=== PATIENT | male | born 1960 | race Caucasian/White ===

== ENCOUNTER 2016-09-29 10:18 | Emergency (ER) | payer OTHER ==
[2016-09-29 10:48] VITALS: BP 139/96
--- NOTE | 2016-09-29 11:33 | RAD ---
INDICATION: Right wrist injury. TECHNIQUE: 3 views of the right wrist were obtained. FINDINGS: The bones are normal alignment. There are small calcific densities which project adjacent to the distal scaphoid bone and radius likely representing old fracture fragments. No other focal bony abnormalities are seen. Joint spaces appear maintained. IMPRESSION: THERE ARE SMALL CALCIFIC DENSITIES ADJACENT TO THE DISTAL SCAPHOID BONE AND RADIUS LIKELY REPRESENTING OLD FRACTURE FRAGMENTS.
--- NOTE | 2016-09-29 11:35 | RAD ---
Indication: The RIGHT thumb metacarpal phalangeal joint region pain post fall on outstretched hand 3 days ago. Comparison: September 29, 2016 RIGHT wrist exam. Technique: AP, lateral, and oblique views RIGHT thumb. Report: Normal articular alignment. No cortical disruption or suspicious trabecular irregularity to suggest fracture. Mild basal joint osteophytosis and minimal first metacarpal phalangeal joint osteophytosis without significant joint space narrowing. Mild nonfocal soft tissue swelling about the thumb. IMPRESSION: Mild soft tissue swelling. Negative for fracture or malalignment.
--- NOTE | 2016-09-29 11:44 | UC ---
Hand/Wrist HPI - HPI Summary HPI Summary: complaint of right wrist and thumb pain fell off a stool and caught himself with his arm the next day started to have pain in wrist and thumb which has increased tired using ice packs and ibuprofen and aleve without relief constant aching pain in base of thumb and medial side of wrist moving his thumb and turning his wrist increases pain - History Of Current Complaint Chief Complaint: UCUpperExtremity Stated Complaint: THUMB INJURY Time Seen by Provider: 09/29/16 11:35 Hx Obtained From: Patient - Allergies/Home Medications Allergies/Adverse Reactions: Allergies Allergy/AdvReac Type Severity Reaction Status Date / Time No Known Allergies Allergy Verified 07/23/14 10:09 Home Medications: Home Medications Insulin Glargine [Lantus] 100 unit SC 09/29/16 [History] PMH/Surg Hx/FS Hx/Imm Hx Previously Healthy: Yes Endocrine History: Diabetes, Dyslipidemia Cardiovascular History: Hypertension - Surgical History Surgical History: Yes Surgery Procedure, Year, and Place: [email or web address], - Family History Known Family History: Positive: Diabetes - parents Negative: Cardiac Disease, Hypertension - Social History Occupation: Employed Full-time Lives: With Family Alcohol Use: Rare Substance Use Type: None Smoking Status (MU): Never Smoked Tobacco Have You Smoked in the Last Year: No Review of Systems Constitutional: Negative Skin: Negative Eyes: Negative ENT: Negative Respiratory: Negative Cardiovascular: Negative Gastrointestinal: Negative Genitourinary: Negative Motor: Negative Neurovascular: Negative Musculoskeletal: Other: - right wriat and thumb pain Neurological: Negative Psychological: Negative All Other Systems Reviewed And Are Negative: Yes Physical Exam Triage Information Reviewed: Yes Appearance: No Pain Distress, Well-Nourished Vital Signs: Initial Vital Signs Temp 98.3 F 09/29/16 10:44 Pulse 62 09/29/16 10:44 Resp 18 09/29/16 10:44 BP 139/96 09/29/16 10:44 Pulse Ox 98 09/29/16 10:44 Vital Signs Reviewed: Yes Eyes: Positive: Conjunctiva Clear ENT: Positive: Pharynx normal, TMs normal Neck: Positive: No Lymphadenopathy Respiratory: Positive: Lungs clear, Normal breath sounds, No respiratory distress Cardiovascular: Positive: RRR, No Murmur, Pulses Normal Abdomen Description: Positive: Nontender, Soft Bowel Sounds: Positive: Present Musculoskeletal: Positive: Other: - RUE- tenderness in anatomical snuff box tenderness;edema and tenderness thenar eminence Full ROM in DIP, PIP, MCP, & carpal joints & with supination and pronation. Neurological: Positive: Alert Psychological Exam: Normal Skin Exam: Normal Hand/Wrist Course/Dx - Course Course Of Treatment: exam completed. x-ray shows calcified around schapoid bones. d/t snuff box tenderness will splint and followup with orthopedics for further evaluation and treatment. - Differential Dx/Diagnosis Differential Diagnosis/HQI/PQRI: Contusion, Fracture, Sprain, Strain Provider Diagnoses: right wrist injury - possible scaphoid fracture Discharge - Discharge Plan Condition: Stable Disposition: HOME Prescriptions: oxyCODONE/Acetamin 5/325 MG* [Percocet 5/325 TAB*] 1 tab PO Q4H PRN #12 tab MDD 6 PRN Reason: Pain Patient Education Materials: Wrist Injury (ED), Wrist Fracture in Adults (ED) Referrals: Babak Mosqueda MD [Primary Care Provider] - Brandon Luis MD [Medical Doctor] - Additional Instructions: Please call clerical support specialist for an appointment. They will evaluate and determine your treatment. It is important to wear splint until you are seen by orthopedics. Take naproxen to control pain and reduce inflammation. Please review your discharge instructions. If your symptoms worsen call clerical support specialist or return to urgent care.
== END 2016-09-29 11:58 | disposition home or self-care (01) ==
LOC: UCEAST 10:18
DX: S69.91XA Unspecified injury of right wrist, hand and finger(s), initial encounter (principal); W08.XXXA Fall from other furniture, initial encounter; Y93.9 Activity, unspecified; Y92.9 Unspecified place or not applicable; Y99.9 Unspecified external cause status; E11.9 Type 2 diabetes mellitus without complications; Z79.4 Long term (current) use of insulin
CPT/HCPCS: 99213; G0463

== ENCOUNTER 2016-12-08 18:41 | Emergency (ER) | payer OTHER ==
[2016-12-08 19:15] VITALS: BP 142/81
--- NOTE | 2016-12-08 19:19 | RAD ---
INDICATION: Right index finger injury. TECHNIQUE: 3 views of the right second finger were obtained. FINDINGS: There is diffuse soft tissue swelling. No fracture is seen. 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 IMPRESSION: SOFT TISSUE SWELLING, NO FRACTURE IS SEEN.
--- NOTE | 2016-12-08 19:55 | UC ---
Upper Extremity HPI - HPI Summary HPI Summary: Patient presents with right index finger injury after it was caught in a car door. Endorses numbness and tingling x 1 hour, but has not dissipated. No ecchymosis noted, but redness around the finger. Denies other injuries. - History of Current Complaint Hx Obtained From: Patient ?: No Onset/Duration: Sudden Onset Severity Initially: Moderate Severity Currently: Moderate Pain Intensity: 1 Pain Scale Used: 0-10 Numeric Location Of Pain: Is Discrete @ - right index Aggravating Factor(s): Lifting, Flexion, Extension, Internal/External Rotation Alleviating Factor(s): Compression Associated Signs And Symptoms: Positive: Negative - Risk Factors Non-Orthopedic Risk Factor: Negative DVT Risk Factors: Negative Compartment Syndrome Risk Factors: Pain <Shelby Hughes - Last Filed: 12/08/16 19:50> <Jelly Sanchez - Last Filed: 12/09/16 20:11> - History of Current Complaint Chief Complaint: UCGeneralIllness Stated Complaint: RIGHT INDEX FINGER INJURY Time Seen by Provider: 12/08/16 19:32 - Allergies/Home Medications Allergies/Adverse Reactions: Allergies Allergy/AdvReac Type Severity Reaction Status Date / Time No Known Allergies Allergy Verified 12/08/16 19:04 Home Medications: Home Medications Ranitidine TAB (NF) [Zantac TAB (NF)] 1 tab BEDTIME 12/08/16 [History Confirmed 12/08/16] Rosuvastatin Calcium [Crestor] 1 tab DAILY 12/08/16 [History Confirmed 12/08/16] PMH/Surg Hx/FS Hx/Imm Hx Previously Healthy: Yes - Surgical History Surgical History: Yes Surgery Procedure, Year, and Place: [email or web address] [email or web address], - Family History Known Family History: Positive: Diabetes - parents Negative: Cardiac Disease, Hypertension - Social History Occupation: Employed Full-time Lives: With Family Alcohol Use: Rare Substance Use Type: None Smoking Status (MU): Never Smoked Tobacco Have You Smoked in the Last Year: No - Immunization History Most Recent Influenza Vaccination: 2016 <Shelby Hughes - Last Filed: 12/08/16 19:50> Review of Systems Constitutional: Negative Skin: Negative Respiratory: Negative Cardiovascular: Negative Motor: Negative Neurovascular: Negative Musculoskeletal: Arthralgia Neurological: Negative Is Patient Immunocompromised?: No All Other Systems Reviewed And Are Negative: Yes <Shelby Hughes - Last Filed: 12/08/16 19:50> Physical Exam Triage Information Reviewed: Yes Appearance: Well-Appearing, Well-Nourished Vital Signs: Initial Vital Signs Temp 98.3 F 12/08/16 19:09 Pulse 73 12/08/16 19:09 Resp 16 12/08/16 19:09 BP 142/81 12/08/16 19:09 Pulse Ox 97 12/08/16 19:09 Vital Signs Reviewed: Yes Eye Exam: Normal Eyes: Positive: Conjunctiva Clear Neck exam: Normal Neck: Positive: Supple, No Lymphadenopathy Respiratory Exam: Normal Respiratory: Positive: Chest non-tender, Lungs clear Cardiovascular Exam: Normal Cardiovascular: Positive: RRR Musculoskeletal Exam: Normal Musculoskeletal: Positive: ROM Intact, Other: - pain on palpation over the right index finger Neurological Exam: Normal Psychological: Positive: Normal Response To Family, Age Appropriate Behavior Skin Exam: Normal <Shelby Hughes - Last Filed: 12/08/16 19:50> Vital Signs: Initial Vital Signs Temp 98.3 F 12/08/16 19:09 Pulse 73 12/08/16 19:09 Resp 16 12/08/16 19:09 BP 142/81 12/08/16 19:09 Pulse Ox 97 12/08/16 19:09 <Jelly Sanchez - Last Filed: 12/09/16 20:11> Upper Extremity Course/Dx - Course Course Of Treatment: Patient sent to xray. Negative for any findings. Patient made aware. Encouraged ibuprofen and ice. - Differential Dx/Diagnosis Differential Diagnosis/HQI/PQRI: Fracture (Open), Fracture (Closed), Strain, Sprain Provider Diagnoses: Finger Contusion <Shelby Hughes - Last Filed: 12/08/16 19:50> Discharge <Shelby Hughes - Last Filed: 12/08/16 19:50> <Jelly Sanchez - Last Filed: 12/09/16 20:11> - Discharge Plan Condition: Stable Disposition: HOME Patient Education Materials: Contusion in Adults (ED) Referrals: Babak Mosqueda MD [Primary Care Provider] - Additional Instructions: Ibuprofen 600mg three times daily Ice Rest the area Attestation Statement User Type: Provider - I was available for consult. This patient was seen by the AME. The patient was not presented to, seen by, or examined by me. -Laura <Jelly Sanchez - Last Filed: 12/09/16 20:11>
== END 2016-12-08 19:41 | disposition home or self-care (01) ==
LOC: UCCORT 18:41
DX: S60.021A Contusion of right index finger without damage to nail, initial encounter (principal); W23.0XXA Caught, crushed, jammed, or pinched between moving objects, initial encounter; Y92.9 Unspecified place or not applicable
CPT/HCPCS: 73140; 99211; G0463

== ENCOUNTER 2024-02-06 10:58 | Observation (INO) ==
[~2024-02-06 10:58] MED LIST: NS 0.45% 1000 ml BAG 1,000 ML IV SCH; Naloxone 0.4 mg VIAL 0.4 mg/ml 1 ml VIAL IV PRN; Ondansetron 4 mg VIAL 2 MG/ML 2 ml VIAL IV PRN; fentaNYL 100 mcg/2 ml 50 MCG/ML VIAL IV PRN
[2024-02-06] MEDS: Lactated Ringers 1000 ml BAG 1,000 ML IV SCH (11:43)
[2024-02-06] MEDS: Buffered Lidocaine 1% SYRIN 1 ml INTRADERM ONE (11:43)
[2024-02-06 11:59] LABS: Rapid COVID-19 Molecular Undetected (Undetected)
[2024-02-06] MEDS ORDERED: Ondansetron 4 mg VIAL 2 MG/ML 2 ml VIAL IV PRN (12:00)
[2024-02-06] MEDS ORDERED: Midazolam 2 mg/2 ml VIAL 1 mg/ml 2 ml VIAL (2 mg) ONE (12:48)
[2024-02-06] MEDS ORDERED: fentaNYL 100 mcg/2 ml 50 MCG/ML VIAL ONE ×2 (12:48→13:52)
[2024-02-06] MEDS ORDERED: Ondansetron 4 mg VIAL 2 MG/ML 2 ml VIAL ONE (12:48)
[2024-02-06] MEDS ORDERED: Propofol 10 MG/ML 20 ML BTL ONE ×2 (12:48→13:57)
[2024-02-06] MEDS ORDERED: Lidocaine 2% PF 5 ML VIAL ONE (12:48)
[2024-02-06] MEDS ORDERED: Dexamethasone IV 4 MG/ML VIAL 1 ml VIAL ONE (12:48)
[2024-02-06] MEDS ORDERED: Furosemide 20 mg/2 ml IV VIAL ONE (14:30)
[2024-02-06] MEDS ORDERED: fentaNYL 250 mcg/5 ml 50 MCG/ML 5 ml VIAL (250 MCG) ONE (14:34)
[2024-02-06] MEDS: NS 0.9% 1000 ml BAG 1,000 ML IV SCH (17:05)
[2024-02-06] MEDS: Gentamicin ADULT 360 MG in NS 0.9% 100 ml BAG 100 ML IVPB ONE (17:13)
[2024-02-06] MEDS: Ampicillin ADVAN 2 GM in NS 0.9% 100 ML 100 ML IVPB ONE (17:13)
[2024-02-06] MEDS: Acetaminophen IV 1 GM/100ML 1,000 MG/100 ML BAG IV ONE (17:14)
[2024-02-06] MEDS: Neomycin/Polym/Bacit TOP OINT 15 GM TOPICAL SCH (17:34)
[2024-02-06] MEDS ORDERED: Dextrose 50% Syringe 50 ml 25 GM/50 ML SYRINGE IV PUSH PRN (18:12)
[2024-02-06] MEDS: Magnesium Hydroxide LIQ 30 ML UDC PO SCH (21:30)
[2024-02-07] MEDS: Influenza Vaccine *TRI* 2024-25* 0.5 ML SYRINGE IM ONE (12:29)
[2024-02-07 13:39] LABS: Hepatitis C Antibody Negative (Negative)
[2024-02-08 10:10] VITALS: BP 144/94
== END 2024-02-08 13:00 | disposition home or self-care (01) ==
LOC: SSU 10:58 → OR 10:58
PROVIDERS: ADMIT Urology; ATTEND Urology